=== PATIENT | female | born 1935 | race Caucasian/White ===

== ENCOUNTER 2016-11-06 08:41 | Emergency (ER) | payer MEDICARE, BC, OTHER ==
[~2016-11-06] VITALS: Ht 157.5 cm; Wt 65.0 kg
[~2016-11-06 08:41] MED LIST: ASPI81 PO; CALC-137 PO; CLOP75 PO; FISH100020 OR; LIPI40TA PO; TAB-TAB PO; TOPR25TA2 PO
[2016-11-06 08:43] VITALS: BP 149/92; PULSE 84; RESP 12; TEMP 98.5; O2SAT 95
[2016-11-06 08:57] VITALS: BP 163/104; PULSE 92; RESP 19; TEMP 98.7; O2SAT 97
[2016-11-06] MEDS ORDERED: LIPI40TA PO (08:57)
[2016-11-06] MEDS ORDERED: PLAV75TA29 PO (08:57)
[2016-11-06] MEDS ORDERED: METO25TA6 PO (08:57)
[2016-11-06] MEDS ORDERED: ASPIRIN 81 MG CHEW TAB PO ONE (09:00)
--- NOTE | 2016-11-06 09:03 | PD ---
HPI Chief Complaint: Chest Pain Time Seen by Provider: 08:51 Travel History International Travel<30 days: No Contact w/Intl Traveler<30days: No Traveled to known affect area: No History of Present Illness HPI 81yo F with PMH of CAD s/p cardiac stent x2 presents to the ED with c/o right sided chest pain since yesterday. Pain is sharp, nonradiating and worst with deep breathing and movement. +Nausea. sob only with deep breathing. Denies any fever, cough, vomiting, abdominal pain, focal weakness or numbness. Pt's robotics testing technician is Dr. Valenzuela and last stress test is March 2016 and it was normal. PFSH Past Medical History Cancer: No Cardiovascular Problems: Yes (CARDIAC STENTS 2006) High Cholesterol: Yes Coronary Artery Disease: Yes (STENTS) Diabetes: No Hepatitis: No Hiatal Hernia: No Hypertension: Yes Medical other: Yes (ARTHRITIS) Thyroid Disease: No Past Surgical History Coronary Stent: Yes Eye Surgery: Yes (RIGHT EYE SX, BILATER CATARACT) Gynecologic Surgery: Yes (D&C X 3) Pacemaker: No Other Surgery: Yes Social History Alcohol Use: No Tobacco Use: No Substance Use: No Allergies-Medications (Allergen,Severity, Reaction): Coded Allergies: No Known Allergies (Unverified , 11/06/16) Reported Meds & Prescriptions Reported Meds & Active Scripts Active Reported Metoprolol Succinate ER 24 HR (Metoprolol Succinate) 25 Mg Tab 25 Mg PO DAILY Plavix (Clopidogrel Bisulfate) 75 Mg Tab 75 Mg PO DAILY Lipitor (Atorvastatin Calcium) 40 Mg Tab 40 Mg PO HS Review of Systems Except as stated in HPI: all other systems reviewed are Neg Physical Exam Narrative GENERAL: 81yo F not in distress. SKIN: Focused skin assessment warm/dry. HEAD: Atraumatic. Normocephalic. EYES: Pupils equal and round. No scleral icterus. No injection or drainage. ENT: No nasal bleeding or discharge. Mucous membranes pink and moist. NECK: Trachea midline. No JVD. CARDIOVASCULAR: Regular rate and rhythm. No murmur appreciated. RESPIRATORY: No accessory muscle use. Clear to auscultation. Breath sounds equal bilaterally. GASTROINTESTINAL: Abdomen soft, non-tender, nondistended. No rebound tenderness or guarding. MUSCULOSKELETAL: No obvious deformities. No clubbing. No cyanosis. No edema. NEUROLOGICAL: Awake and alert. No obvious cranial nerve deficits. Motor grossly within normal limits. Normal speech. PSYCHIATRIC: Appropriate mood and affect; insight and judgment normal. Data Data Last Documented VS Vital Signs Date Time Temp Pulse Resp B/P Pulse Ox O2 Delivery O2 Flow Rate FiO2 11/06/16 11:36 69 22 163/82 96 Nasal Cannula 2 11/06/16 08:57 98.7 Orders Basic Metabolic Panel (Bmp) (11/06/16 08:58) Ckmb (Isoenzyme) Profile (11/06/16 08:58) Complete Blood Count With Diff (11/06/16 08:58) Magnesium (Mg) (11/06/16 08:58) Prothrombin Time / Inr (Pt) (11/06/16 08:58) Act Partial Throm Time (Ptt) (11/06/16 08:58) Troponin I (11/06/16 08:58) Chest, Single Ap (11/06/16 08:58) Ecg Monitoring (11/06/16 08:58) Bilateral Bp Monitoring (11/06/16 08:58) Iv Access Insert/Monitor (11/06/16 08:58) Oximetry (11/06/16 08:58) Oxygen Administration (11/06/16 08:58) Aspirin Chew (Aspirin Chew) (11/06/16 09:00) Sodium Chloride 0.9% Flush (Ns Flush) (11/06/16 09:00) D-Dimer (11/06/16 09:03) Ct Pulmonary Angiogram (11/06/16 ) Electrocardiogram (11/06/16 08:55) Iohexol 350 Inj (Omnipaque 350 Inj) (11/06/16 11:51) Labs Laboratory Tests Test 11/06/16 09:10 White Blood Count 13.6 TH/MM3 Red Blood Count 4.12 MIL/MM3 Hemoglobin 12.5 GM/DL Hematocrit 34.6 % Mean Corpuscular Volume 84.0 FL Mean Corpuscular Hemoglobin 30.2 PG Mean Corpuscular Hemoglobin 36.0 % Concent Red Cell Distribution Width 14.6 % Platelet Count 254 TH/MM3 Mean Platelet Volume 8.8 FL Neutrophils (%) (Auto) 76.3 % Lymphocytes (%) (Auto) 11.8 % Monocytes (%) (Auto) 11.0 % Eosinophils (%) (Auto) 0.3 % Basophils (%) (Auto) 0.6 % Neutrophils # (Auto) 10.4 TH/MM3 Lymphocytes # (Auto) 1.6 TH/MM3 Monocytes # (Auto) 1.5 TH/MM3 Eosinophils # (Auto) 0.0 TH/MM3 Basophils # (Auto) 0.1 TH/MM3 CBC Comment AUTO DIFF Differential Comment AUTO DIFF CONFIRMED Platelet Estimate NORMAL Platelet Morphology Comment NORMAL Red Cell Morphology Comment NORMAL Prothrombin Time 11.1 SEC Prothromb Time International 1.0 RATIO Ratio Activated Partial 29.9 SEC Thromboplast Time D-Dimer Quantitative (PE/DVT) 1.49 MG/L FEU Sodium Level 134 MEQ/L Potassium Level 3.9 MEQ/L Chloride Level 101 MEQ/L Carbon Dioxide Level 23.4 MEQ/L Anion Gap 10 MEQ/L Blood Urea Nitrogen 16 MG/DL Creatinine 1.00 MG/DL Estimat Glomerular Filtration 53 ML/MIN Rate Random Glucose 118 MG/DL Calcium Level 8.3 MG/DL Magnesium Level 2.2 MG/DL Total Creatine Kinase 67 U/L Troponin I LESS THAN 0.02 NG/ML MDM Medical Decision Making Medical Screen Exam Complete: Yes Emergency Medical Condition: Yes Interpretation(s) EKG: NSR 77bpm. Normal axis. No ST segment elevation or depression. Laboratory Tests Test 11/06/16 09:10 White Blood Count 13.6 TH/MM3 (4.0-11.0) Red Blood Count 4.12 MIL/MM3 (4.00-5.30) Hemoglobin 12.5 GM/DL (11.6-15.3) Hematocrit 34.6 % (35.0-46.0) Mean Corpuscular Volume 84.0 FL (80.0-100.0) Mean Corpuscular Hemoglobin 30.2 PG (27.0-34.0) Mean Corpuscular Hemoglobin 36.0 % Concent (32.0-36.0) Red Cell Distribution Width 14.6 % (11.6-17.2) Platelet Count 254 TH/MM3 (150-450) Mean Platelet Volume 8.8 FL (7.0-11.0) Neutrophils (%) (Auto) 76.3 % (16.0-70.0) Lymphocytes (%) (Auto) 11.8 % (9.0-44.0) Monocytes (%) (Auto) 11.0 % (0.0-8.0) Eosinophils (%) (Auto) 0.3 % (0.0-4.0) Basophils (%) (Auto) 0.6 % (0.0-2.0) Neutrophils # (Auto) 10.4 TH/MM3 (1.8-7.7) Lymphocytes # (Auto) 1.6 TH/MM3 (1.0-4.8) Monocytes # (Auto) 1.5 TH/MM3 (0-0.9) Eosinophils # (Auto) 0.0 TH/MM3 (0-0.4) Basophils # (Auto) 0.1 TH/MM3 (0-0.2) CBC Comment AUTO DIFF Differential Comment AUTO DIFF CONFIRMED Platelet Estimate NORMAL (NORMAL) Platelet Morphology Comment NORMAL (NORMAL) Red Cell Morphology Comment NORMAL (NORMAL) Prothrombin Time 11.1 SEC (9.8-11.6) Prothromb Time International 1.0 RATIO Ratio Activated Partial 29.9 SEC Thromboplast Time (24.3-30.1) D-Dimer Quantitative (PE/DVT) 1.49 MG/L FEU (0.00-0.50) Sodium Level 134 MEQ/L (136-145) Potassium Level 3.9 MEQ/L (3.5-5.1) Chloride Level 101 MEQ/L (98-107) Carbon Dioxide Level 23.4 MEQ/L (21.0-32.0) Anion Gap 10 MEQ/L (5-15) Blood Urea Nitrogen 16 MG/DL (7-18) Creatinine 1.00 MG/DL (0.50-1.00) Estimat Glomerular Filtration 53 ML/MIN (>89) Rate Random Glucose 118 MG/DL (74-106) Calcium Level 8.3 MG/DL (8.5-10.1) Magnesium Level 2.2 MG/DL (1.5-2.5) Total Creatine Kinase 67 U/L (26-192) Troponin I LESS THAN 0.02 NG/ML (0.02-0.05) Last Impressions Chest X-Ray 11/06/16 0858 Signed Impressions: Service Date/Time: Sunday, November 06, 2016 09:08 - CONCLUSION: 1. COPD changes. Stable compared to previous. Jung Moreno MD CT Angiography 11/06/16 0000 Signed Impressions: Service Date/Time: Sunday, November 06, 2016 11:43 - CONCLUSION: No evidence of pulmonary embolism. Nonspecific parenchymal lung findings and enlarged subcarinal lymph node. Further evaluation with PET/CT recommended for followup David Tesfaye MD Differential Diagnosis ACS vs. pericarditis vs. pneumonia vs. PE Narrative Course 81yo F with pleuritic chest pain. Labs reviewed, leukocytosis at 13.6. Troponin negative. CXR showed COPD changes. D-dimer is elevated at 1.49. CT angio ordered to r/o PE. CT angio showed no evidence of PE. Nonspecific parenchymal lung findings and enlarged subcarinal lymph node. Further evaluation with PET/CT recommended for follow up. Informed pt of this and she will follow up. Pt's chest pain is very atypical and non cardiac. Discussed with pt's robotics testing technician Dr. Valenzuela and he states pt can be discharged and follow up with him. States he will call her and have her follow up with him this week. Pt feels better and wants to go home. Return precautions given. Diagnosis Primary Impression: Pleuritic chest pain Patient Instructions: General Instructions Departure Forms: Tests/Procedures Additional Instructions: Please follow up with Dr. Valenzuela this week. Return to the ED if symptoms worsen. Your CT angio showed no evidence of pulmonary embolism. There is nonspecific parenchymal lung findings and enlarged subcarinal lymph node. Further evaluation with PET/CT recommended for follow up. Please follow up with your PMD regarding this. Med/Other Pt SpecificInfo: No Change to Meds Disposition: 01 DISCHARGE HOME Condition: Stable Ann-Marie Pavon DO Nov 06, 2016 09:03
[2016-11-06 09:24] LABS: AUTOMATED NEUTROPHIL # 10.4 TH/MM3 (1.8-7.7); BASOPHIL # 0.1 TH/MM3 (0-0.2); BASOPHIL % 0.6 % (0.0-2.0); EOSINOPHIL % 0.3 % (0.0-4.0); HEMATOCRIT 34.6 % (35.0-46.0); LYMPH % 11.8 % (9.0-44.0); LYMPHOCYTE # 1.6 TH/MM3 (1.0-4.8); MEAN CORPUSCULAR HEMOGLOBIN 30.2 PG (27.0-34.0); NEUT % 76.3 % (16.0-70.0); PLATELET COUNT 254 TH/MM3 (150-450); RED BLOOD COUNT 4.12 MIL/MM3 (4.00-5.30); RED CELL DISTRIBUTION WIDTH 14.6 % (11.6-17.2); WHITE BLOOD COUNT 13.6 TH/MM3 (4.0-11.0)
[2016-11-06 09:27] LABS: HEMO FLAGS AUTO DIFF
[2016-11-06] MEDS: SODIUM CHLORIDE 0.9% FLUSH 10 ML FLUSH IVF PRN ×2 (09:28→12:42)
[2016-11-06 09:29] VITALS: BP 149/73; PULSE 82; RESP 19; O2SAT 97
[2016-11-06 09:41] LABS: ANION GAP 10 MEQ/L (5-15); BICARBONATE 23.4 MEQ/L (21.0-32.0); BLOOD UREA NITROGEN 16 MG/DL (7-18); CHLORIDE 101 MEQ/L (98-107); GLOMERULAR FILTRATION RATE 53 ML/MIN (>89); MAGNESIUM 2.2 MG/DL (1.5-2.5); POTASSIUM 3.9 MEQ/L (3.5-5.1); SODIUM (NA) 134 MEQ/L (136-145)
[2016-11-06 09:43] LABS: APTT (PATIENT) 29.9 SEC (24.3-30.1); PROTHROMBIN TIME - PATIENT 11.1 SEC (9.8-11.6)
[2016-11-06 09:51] LABS: CREATINE KINASE 67 U/L (26-192)
[2016-11-06 10:10] LABS: PLATELET ESTIMATE SMEAR NORMAL (NORMAL); PLATELET MORPHOLOGY NORMAL (NORMAL); SCAN/DIFF AUTO DIFF CONFIRMED
--- NOTE | 2016-11-06 10:24 | RADRPT ---
EXAM DATE/TIME: 11/06/2016 09:08 [facility] COMPARISON: CHEST PA & LAT, November 10, 2012, 9:10. INDICATIONS : Chest pain, shortness of breath, nausea. MEDICAL HISTORY : None. SURGICAL HISTORY : Coronary artery stent. ENCOUNTER: Initial ACUITY: 2 days PAIN SCORE: 10/10 LOCATION: Right chest under breast. FINDINGS: The heart is normal in size. There are diffuse chronic interstitial changes. There is mild COPD. The mediastinal contour is within normal limits. The bony structures are intact. CONCLUSION: 1. COPD changes. Stable compared to previous. Jung Moreno MD on November 06, 2016 at 10:22 Board Certified Radiologist. This report was verified electronically.
[2016-11-06 11:07] VITALS: RESP 18; O2SAT 96
[2016-11-06 11:36] VITALS: BP 163/82; PULSE 69; RESP 22; O2SAT 96
[2016-11-06] MEDS ORDERED: IOHEXOL 350 MG/ML 10 ML VIAL (for RAD DIAG) IV ONE (11:51)
--- NOTE | 2016-11-06 12:05 | RADRPT ---
EXAM DATE/TIME: 11/06/2016 11:43 [facility] COMPARISON: No previous studies available for comparison. INDICATIONS : Pain right axila area for 2 days IV CONTRAST: 74 cc Omnipaque 350 (iohexol) IV RADIATION DOSE: 22.39 CTDIvol (mGy) MEDICAL HISTORY : Hypertension. SURGICAL HISTORY : Coronary artery stent. ENCOUNTER: Initial ACUITY: 2 days PAIN SCALE: 5/10 LOCATION: Right axilla TECHNIQUE: Volumetric scanning of the chest was performed using a pulmonary embolism protocol MIP images were re constructed. Using automated exposure control and adjustment of the mA and/or kV according to patien t size, radiation dose was kept as low as reasonably achievable to obtain optimal diagnostic quality images. FINDINGS: PULMONARY ARTERIES: No filling defects to suggest pulmonary embolism LUNGS: There is a focal airspace consolidation in the posterior right lung apex and some mild similar diseas e in the medial left apex. There is an 8mm nodular density along the pleural surface of the anterolat eral right middle lobe. A slightly greater than 3 cm pleural-based density along the base of the late ral segment of the right middle lobe. A 15 mm nodular density is present in the medial right costophr enic sulcus. 6 mm central left lung base nodule. Mild basilar atelectasis or scarring. PLEURAE: There is no pleural thickening or pleural effusion. MEDIASTINUM: 2.6 x 1.5 cm (long axis by short axis) subcarinal presumed eric mass MUSCULOSKELETAL: Within normal limits for patient age. MISCELLANEOUS: The visualized upper abdominal organs demonstrate no acute abnormality. CONCLUSION: No evidence of pulmonary embolism. Nonspecific parenchymal lung findings and enlarged subcarinal lymp h node. Further evaluation with PET/CT recommended for followup David Tesfaye MD on November 06, 2016 at 11:57 Board Certified Radiologist. This report was verified electronically.
[2016-11-06 13:19] VITALS: BP 157/58
--- NOTE | 2016-11-06 16:03 | EKG ---
Date Performed: 11/06/2016 Time Performed: 08:55:38 PTAGE: 81 years EKG: Sinus rhythm WITH SINUS ARRHYTHMIA NORMAL ECG Compared to prior tracing no significant change PREVIOUS TRACING : 10/29/2011 10.34 DOCTOR: Nelida Thorpe Interpretating Date/Time 11/06/2016 16:02:50
== END 2016-11-06 13:28 | disposition home or self-care (01) ==
LOC: NEPC 08:41
DX: R07.81 Pleurodynia (principal); R11.0 Nausea; D72.829 Elevated white blood cell count, unspecified; I10 Essential (primary) hypertension; E78.00 Pure hypercholesterolemia, unspecified; Z86.79 Personal history of other diseases of the circulatory system; Z87.39 Personal history of other diseases of the musculoskeletal system and connective tissue
CPT/HCPCS: 71010; 71275; 80048; 82550; 83735; 84484; 85025; 85379; 85610; 85730; 93005; 99285; Q9967